=== PATIENT | male | born 1955 | race Caucasian/White ===

== ENCOUNTER 2017-02-08 16:53 | Inpatient (IN) | payer MEDICAID, OTHER ==
[~2017-02-08] VITALS: Ht 172.7 cm; Wt 108.9 kg
[~2017-02-08 16:53] MED LIST: BRIM15DR2 EACHEYE; CARV6.2548 PO; CLOP75TA16 PO; FAMO40TA70 PO; INDO25CA PO; LORA10TA7 PO; LOSA25TA3 PO; MONT10TA21 PO; MONT10TA24 PO; NEPT50 PO; SERT50TA PO; SIMV40TA5 PO; SUCR1ORA PO; ZET10 PO
[2017-02-08] MEDS ORDERED: ASPIRIN 81MG TABLET PO ONE (19:00)
[2017-02-08 19:05] LABS: BASOPHILS % 1.1 % (0.0-2.0); EOSINOPHILS % 2.5 % (0.0-5.0); HEMOGLOBIN. 14.7 g/dL (14.0-18.0); LYMPHOCYTES % 39.7 % (20.0-50.0); MEAN CORPUSCULAR HEMOGLOBIN 40.3 pg (28.0-32.0); MEAN CORPUSCULAR VOLUME 112.5 fL (80.0-94.0); MEAN PLATELET VOLUME 7.1 fl (7.4-10.4); MONOCYTES % 10.7 % (2.0-8.0); PLATELET 230 x1000/uL (130-400); RED BLOOD CELL COUNT 3.65 mill/uL (4.7-6.1); RED CELL DISTRIBUTION WIDTH 13.1 % (11.6-14.6)
[2017-02-08 19:10] LABS: CHLORIDE 100 mEq/L (98-107)
[2017-02-08 19:12] LABS: PARTIAL THROMBOPLASTIN TIME 24.5 sec (23.4-31.0); PROTHROMBIN TIME 10.4 sec (9.4-11.6)
[2017-02-08 19:13] LABS: CARBON DIOXIDE 28 mEq/L (21-32)
[2017-02-08 19:19] LABS: CREATINE KINASE 78 IU/L (39-308)
[2017-02-08 19:21] LABS: CREATINE KINASE MB FRACTION 1.5 ng/mL (0.5-3.6); TROPONIN I 0.02 ng/mL (0.00-0.04)
[2017-02-08 19:37] LABS: CLARITY URINE CLEAR (CLEAR); COLOR URINE DARK YELLOW (YELLOW); GLUCOSE URINE NEGATIVE (NEGATIVE); KETONES URINE TRACE (NEGATIVE); LEUKOCYTE ESTERASE URINE NEGATIVE (NEGATIVE); NITRITE URINE NEGATIVE (NEGATIVE); OCCULT BLOOD URINE NEGATIVE (NEGATIVE); PH URINE 5.5 (4.5-8.0); PROTEIN URINE NEGATIVE (NEGATIVE); SPECIFIC GRAVITY URINE 1.027 (1.005-1.030)
[2017-02-08 19:58] LABS: PLATELET ESTIMATE NORMAL
[2017-02-09] VITALS (13 sets, daily range): BP systolic 108–136; BP diastolic 58–83
[2017-02-09] MEDS ORDERED: HYDR500C18 PO (01:55)
[2017-02-09] MEDS ORDERED: ASPI-986 PO (02:03)
[2017-02-09] MEDS ORDERED: FURO20TA4 PO (02:04)
[2017-02-09] MEDS ORDERED: SPIR25TA PO (02:06)
[2017-02-09] MEDS ORDERED: RANO10003 PO (02:06)
[2017-02-09] MEDS ORDERED: ISOS30TA6 PO (02:10)
[2017-02-09] MEDS ORDERED: LOSARTAN POTASSIUM 25 MG TABLET PO SCH (09:00)
[2017-02-09] MEDS: SERTRALINE HCL 50MG TABLET PO SCH (09:07)
[2017-02-09] MEDS: RANOLAZINE 500 MG TAB.SR.12H PO SCH ×2 (09:07→17:07)
[2017-02-09] MEDS: LORATADINE 10MG TABLET PO SCH (09:07)
[2017-02-09] MEDS: ASPIRIN 325MG TABLET PO SCH (09:08)
[2017-02-09] MEDS: CLOPIDOGREL 75MG TABLET PO SCH (09:08)
[2017-02-09] MEDS: MONTELUKAST SODIUM 10MG TABLET PO SCH (09:08)
[2017-02-09] MEDS: CARVEDILOL 6.25 MG TABLET PO SCH ×2 (09:09→22:17)
[2017-02-09] MEDS: ISOSORBIDE MONONITRATE 30MG TABLET SR 24HR PO SCH (09:09)
[2017-02-09] MEDS: EZETIMIBE 10MG TABLET PO SCH (09:09)
[2017-02-09] MEDS: SPIRONOLACTONE 25MG TABLET PO SCH (09:09)
[2017-02-09] MEDS: FUROSEMIDE 40MG/4ML VIAL IVP SCH ×2 (09:10→16:37)
[2017-02-09] MEDS: HYDROXYUREA 500MG CAPSULE PO SCH (09:11)
[2017-02-09] MEDS: BUDESONIDE 0.5MG/2ML NEB HHN SCH ×2 (16:51→21:03)
[2017-02-09] MEDS ORDERED: HYDROCODONE/ACETAMINOPHEN 10/325MG TABLET PO PRN (22:15)
[2017-02-09] MEDS ORDERED: ONDANSETRON HCL 4MG/2ML VIAL IV PRN (22:15)
[2017-02-09] MEDS: FAMOTIDINE 20MG TABLET PO SCH (22:16)
[2017-02-09] MEDS: ATORVASTATIN CALCIUM 40MG TABLET PO SCH (22:16)
[2017-02-10] VITALS (12 sets, daily range): BP systolic 103–131; BP diastolic 44–78
[2017-02-10 07:33] LABS: CARBON DIOXIDE 26 mEq/L (21-32); CHLORIDE 103 mEq/L (98-107); HDL CHOLESTEROL 33 mg/dL (40-59); LDL CHOLESTEROL 73 mg/dL (5-100); TROPONIN I 0.02 ng/mL (0.00-0.04)
[2017-02-10 07:48] LABS: EOSINOPHILS % 3.4 % (0.0-5.0); HEMOGLOBIN. 13.2 g/dL (14.0-18.0); LYMPHOCYTES % 42.5 % (20.0-50.0); MEAN CORPUSCULAR HEMOGLOBIN 40.5 pg (28.0-32.0); MEAN CORPUSCULAR VOLUME 113.7 fL (80.0-94.0); MEAN PLATELET VOLUME 7.2 fl (7.4-10.4); MONOCYTES % 12.9 % (2.0-8.0); NEUTROPHILS % 40.2 % (40.0-76.0); PLATELET 198 x1000/uL (130-400); RED BLOOD CELL COUNT 3.26 mill/uL (4.7-6.1)
[2017-02-10] MEDS: BUDESONIDE 0.5MG/2ML NEB HHN SCH ×2 (09:19→21:19)
[2017-02-10] MEDS: SERTRALINE HCL 50MG TABLET PO SCH (09:47)
[2017-02-10] MEDS: CLOPIDOGREL 75MG TABLET PO SCH (09:47)
[2017-02-10] MEDS: RANOLAZINE 500 MG TAB.SR.12H PO SCH ×2 (09:47→17:21)
[2017-02-10] MEDS: SPIRONOLACTONE 25MG TABLET PO SCH (09:50)
[2017-02-10] MEDS: ISOSORBIDE MONONITRATE 30MG TABLET SR 24HR PO SCH (09:50)
[2017-02-10] MEDS: HYDROXYUREA 500MG CAPSULE PO SCH (09:51)
[2017-02-10] MEDS: EZETIMIBE 10MG TABLET PO SCH (09:51)
[2017-02-10] MEDS: CARVEDILOL 6.25 MG TABLET PO SCH ×2 (09:51→20:59)
[2017-02-10] MEDS: ASPIRIN 325MG TABLET PO SCH (09:51)
[2017-02-10] MEDS: LORATADINE 10MG TABLET PO SCH (09:51)
[2017-02-10] MEDS: MONTELUKAST SODIUM 10MG TABLET PO SCH (09:51)
[2017-02-10] MEDS ORDERED: LIDOCAINE HCL 1% 20ML VIAL (Pyxis) INJ ONE (13:42)
[2017-02-10] MEDS ORDERED: IODIXANOL 320MG/ML 100 ML BOTTLE IV ONE (13:42)
[2017-02-10] MEDS ORDERED: ASPIRIN/SOD BICARB/CITRIC ACID 324MG TAB EFF ONE (14:00)
[2017-02-10] MEDS ORDERED: FENTANYL CITRATE/PF 50MCG/ML 2ML VIAL ONE (14:11)
[2017-02-10] MEDS ORDERED: MIDAZOLAM HCL 2 MG/2 ML VIAL ONE (14:11)
[2017-02-10] MEDS ORDERED: HEPARIN SODIUM 1,000 UNIT/1ML VIAL IV ONE (14:13)
[2017-02-10] MEDS ORDERED: ONDANSETRON HCL 4MG/2ML VIAL IV PRN (15:00)
[2017-02-10] MEDS ORDERED: ACETAMINOPHEN 325MG TABLET PO PRN (15:00)
[2017-02-10] MEDS ORDERED: SODIUM CHLORIDE 0.45% 1,000 ML IV ONE (15:00)
[2017-02-10] MEDS ORDERED: MORPHINE SULFATE 2 MG/ML CPJ (NOT FOR IM USE) IV PRN (15:00)
[2017-02-10] MEDS ORDERED: ATROPINE SULFATE 1MG/10ML SYR IV PRN (15:00)
[2017-02-10] MEDS: FAMOTIDINE 20MG TABLET PO SCH (20:59)
[2017-02-10] MEDS: ATORVASTATIN CALCIUM 40MG TABLET PO SCH (21:00)
[2017-02-10] MEDS: FUROSEMIDE 20MG TABLET PO SCH (21:00)
[2017-02-11] VITALS (9 sets, daily range): BP systolic 104–142; BP diastolic 60–82
[2017-02-11 07:25] LABS: BASOPHILS % 0.6 % (0.0-2.0); EOSINOPHILS % 3.1 % (0.0-5.0); HEMATOCRIT. 39.4 % (42.0-52.0); HEMOGLOBIN. 14.1 g/dL (14.0-18.0); LYMPHOCYTES % 31.2 % (20.0-50.0); MEAN CORPUSCULAR HEMOGLOBIN 40.1 pg (28.0-32.0); MEAN CORPUSCULAR VOLUME 112.1 fL (80.0-94.0); MEAN PLATELET VOLUME 6.7 fl (7.4-10.4); MONOCYTES % 13.3 % (2.0-8.0); NEUTROPHILS % 51.8 % (40.0-76.0); PLATELET 190 x1000/uL (130-400); RED BLOOD CELL COUNT 3.51 mill/uL (4.7-6.1); RED CELL DISTRIBUTION WIDTH 12.8 % (11.6-14.6)
[2017-02-11 07:56] LABS: CHLORIDE 99 mEq/L (98-107)
[2017-02-11 08:14] LABS: CARBON DIOXIDE 25 mEq/L (21-32); TROPONIN I < 0.02 ng/mL (0.00-0.04)
[2017-02-11] MEDS: ASPIRIN 325MG TABLET PO SCH (08:57)
[2017-02-11] MEDS: RANOLAZINE 500 MG TAB.SR.12H PO SCH (08:57)
[2017-02-11] MEDS: ISOSORBIDE MONONITRATE 30MG TABLET SR 24HR PO SCH (08:57)
[2017-02-11] MEDS: CARVEDILOL 6.25 MG TABLET PO SCH (08:57)
[2017-02-11] MEDS: CLOPIDOGREL 75MG TABLET PO SCH (08:58)
[2017-02-11] MEDS: FUROSEMIDE 20MG TABLET PO SCH (08:58)
[2017-02-11] MEDS: EZETIMIBE 10MG TABLET PO SCH (08:58)
[2017-02-11] MEDS: MONTELUKAST SODIUM 10MG TABLET PO SCH (08:58)
[2017-02-11] MEDS: SPIRONOLACTONE 25MG TABLET PO SCH (08:58)
[2017-02-11] MEDS: SERTRALINE HCL 50MG TABLET PO SCH (08:59)
[2017-02-11] MEDS: HYDROXYUREA 500MG CAPSULE PO SCH (08:59)
[2017-02-11] MEDS: LORATADINE 10MG TABLET PO SCH (08:59)
[2017-02-11] MEDS: BUDESONIDE 0.5MG/2ML NEB HHN SCH (10:17)
[2017-02-11] MEDS ORDERED: CLOP75TA16 PO (11:01)
[2017-02-11] MEDS ORDERED: ASPI-986 PO (11:01)
== END 2017-02-11 12:58 | disposition home or self-care (01) | DRG 192 ==
LOC: EDBEDREQ 19:02 → ENRESERV 19:59 → ER 20:13 → 3WST 20:54
PROVIDERS: ADMIT Internal Medicine; ATTEND Internal Medicine
PROC: 5A09357 Assistance with Respiratory Ventilation, Less than 24 Consecutive Hours, Continuous Positive Airway Pressure (ICD-10-PCS; 2017-02-09)
PROC: 4A023N7 Measurement of Cardiac Sampling and Pressure, Left Heart, Percutaneous Approach (ICD-10-PCS; principal; 2017-02-10)
PROC: B2111ZZ Fluoroscopy of Multiple Coronary Arteries using Low Osmolar Contrast (ICD-10-PCS; 2017-02-10)
PROC: B2131ZZ Fluoroscopy of Multiple Coronary Artery Bypass Grafts using Low Osmolar Contrast (ICD-10-PCS; 2017-02-10)
PROC: B2151ZZ Fluoroscopy of Left Heart using Low Osmolar Contrast (ICD-10-PCS; 2017-02-10)
DX: R07.9 Chest pain, unspecified (principal); J96.00 Acute respiratory failure, unspecified whether with hypoxia or hypercapnia; I50.23 Acute on chronic systolic (congestive) heart failure; I42.0 Dilated cardiomyopathy; E11.22 Type 2 diabetes mellitus with diabetic chronic kidney disease; F32.9 Major depressive disorder, single episode, unspecified; F41.9 Anxiety disorder, unspecified; H40.9 Unspecified glaucoma; I25.5 Ischemic cardiomyopathy; G47.33 Obstructive sleep apnea (adult) (pediatric); E78.00 Pure hypercholesterolemia, unspecified; E78.5 Hyperlipidemia, unspecified; I25.110 Atherosclerotic heart disease of native coronary artery with unstable angina pectoris; I13.0 Hypertensive heart and chronic kidney disease with heart failure and stage 1 through stage 4 chronic kidney disease, or unspecified chronic kidney disease; J44.1 Chronic obstructive pulmonary disease with (acute) exacerbation; K21.9 Gastro-esophageal reflux disease without esophagitis; N18.9 Chronic kidney disease, unspecified; F51.04 Psychophysiologic insomnia; Z87.891 Personal history of nicotine dependence; Z79.899 Other long term (current) drug therapy; Z90.49 Acquired absence of other specified parts of digestive tract; I25.2 Old myocardial infarction; Z95.5 Presence of coronary angioplasty implant and graft; Z95.1 Presence of aortocoronary bypass graft; Z79.82 Long term (current) use of aspirin
CPT/HCPCS: 36415; 71010; 80053; 80061; 81003; 82550; 82553; 83690; 83735; 83880; 84443; 84484; 85025; 85610; 85730; 93005; 93306; 93459; 93970; 94640; 94660; 94664; 99285; C1760; C1769; C1887; C1893; J1644; J1940; J2250; J3010; J3490; J7626; Q9967

== ENCOUNTER 2017-06-13 08:00 | Inpatient (IN) | payer MEDICAID ==
[~2017-06-13] VITALS: Ht 170.2 cm; Wt 83.1 kg
[2017-06-13] MEDS: EZETIMIBE 10MG TABLET PO SCH (00:30)
[~2017-06-13 08:00] MED LIST changes: +ASPI-986 PO; +FURO20TA4 PO; +HYDR500C18 PO; +ISOS30TA6 PO; +RANO10003 PO; +SPIR25TA PO
[2017-06-13 09:14] LABS: INR 1.1
[2017-06-13 09:19] LABS: BASOPHILS % 1.2 % (0.0-2.0); EOSINOPHILS % 2.1 % (0.0-5.0); HEMATOCRIT. 38.9 % (42.0-52.0); HEMOGLOBIN. 13.6 g/dL (14.0-18.0); LYMPHOCYTES % 38.5 % (20.0-50.0); MEAN CORPUSCULAR HEMOGLOBIN 39.6 pg (28.0-32.0); MEAN CORPUSCULAR VOLUME 113.6 fL (80.0-94.0); MEAN PLATELET VOLUME 7.4 fl (7.4-10.4); MONOCYTES % 7.8 % (2.0-8.0); NEUTROPHILS % 50.4 % (40.0-76.0); PLATELET 205 x1000/uL (130-400); RED BLOOD CELL COUNT 3.42 mill/uL (4.7-6.1); RED CELL DISTRIBUTION WIDTH 12.7 % (11.6-14.6)
[2017-06-13 09:25] LABS: CARBON DIOXIDE 25 mEq/L (21-32); CHLORIDE 101 mEq/L (98-107); TROPONIN I < 0.02 ng/mL (0.00-0.04)
[2017-06-13 10:13] LABS: PLATELET ESTIMATE NORMAL
[2017-06-13] MEDS ORDERED: LORAZEPAM 0.5MG TABLET PO PRN (11:30)
[2017-06-13] MEDS ORDERED: CLONIDINE 0.1MG TABLET PO PRN (11:30)
[2017-06-13] MEDS ORDERED: MAGNESIUM/ALUMINUM HYDROXIDE/SIMETHICONE 30ML UDC PO PRN (11:30)
[2017-06-13] MEDS ORDERED: HYDROCODONE/ACETAMINOPHEN 5/325MG TABLET PO PRN (11:30)
[2017-06-13] MEDS ORDERED: IPRATROPIUM/ALBUTEROL 0.5-3(2.5)MG/3ML NEB INH PRN (11:30)
[2017-06-13] MEDS ORDERED: ONDANSETRON HCL 4MG/2ML VIAL IV PRN (11:30)
[2017-06-13] MEDS ORDERED: ACETAMINOPHEN 325MG TABLET PO PRN (11:30)
[2017-06-13 14:54] LABS: CREATINE KINASE MB FRACTION 1.4 ng/mL (0.5-3.6); TROPONIN I 0.02 ng/mL (0.00-0.04)
[2017-06-13] MEDS ORDERED: NITROGLYCERIN OINT 1GM/INCH UDPKT TD NR (18:30)
[2017-06-13] MEDS: CLOPIDOGREL 75MG TABLET PO SCH (21:19)
[2017-06-13] MEDS: ASPIRIN 325MG EC TABLET PO SCH (21:19)
[2017-06-13] MEDS ORDERED: NON FORMULARY PATIENT HOME MED EA XX SCH (23:45)
[2017-06-13] MEDS ORDERED: CARVEDILOL 6.25 MG TABLET PO SCH (23:45)
[2017-06-13] MEDS ORDERED: LOSARTAN POTASSIUM 25 MG TABLET PO SCH (23:45)
[2017-06-13] MEDS ORDERED: ISOSORBIDE MONONITRATE 20MG TABLET PO SCH (23:45)
[2017-06-13] MEDS: FUROSEMIDE 20MG TABLET PO SCH (23:55)
[2017-06-14] VITALS (20 sets, daily range): BP systolic 93–164; BP diastolic 57–87
[2017-06-14] MEDS: CARVEDILOL 6.25 MG TABLET PO SCH ×3 (00:24→20:52)
[2017-06-14] MEDS: LOSARTAN POTASSIUM 25 MG TABLET PO SCH ×2 (00:24→09:00)
[2017-06-14 00:25] LABS: CREATINE KINASE 99 IU/L (39-308)
[2017-06-14] MEDS: NITROGLYCERIN OINT 1GM/INCH UDPKT TD SCH ×3 (00:25→17:22)
[2017-06-14 06:54] LABS: CARBON DIOXIDE 27 mEq/L (21-32); CHLORIDE 101 mEq/L (98-107); LDL CHOLESTEROL 75 mg/dL (5-100); TROPONIN I 0.03 ng/mL (0.00-0.04)
[2017-06-14 07:00] LABS: HDL CHOLESTEROL 36 mg/dL (40-59)
[2017-06-14 07:01] LABS: BASOPHILS % 1.3 % (0.0-2.0); EOSINOPHILS % 2.3 % (0.0-5.0); HEMATOCRIT. 41.3 % (42.0-52.0); HEMOGLOBIN. 14.4 g/dL (14.0-18.0); LYMPHOCYTES % 51.2 % (20.0-50.0); MEAN CORPUSCULAR HEMOGLOBIN 39.7 pg (28.0-32.0); MEAN CORPUSCULAR VOLUME 114.2 fL (80.0-94.0); MEAN PLATELET VOLUME 7.2 fl (7.4-10.4); MONOCYTES % 11.1 % (2.0-8.0); NEUTROPHILS % 34.1 % (40.0-76.0); PLATELET 180 x1000/uL (130-400); RED BLOOD CELL COUNT 3.61 mill/uL (4.7-6.1); RED CELL DISTRIBUTION WIDTH 12.9 % (11.6-14.6)
[2017-06-14] MEDS ORDERED: EZETIMIBE 10MG TABLET PO SCH (09:00)
[2017-06-14] MEDS: SPIRONOLACTONE 25MG TABLET PO SCH (09:00)
[2017-06-14] MEDS: FUROSEMIDE 20MG TABLET PO SCH (09:00)
[2017-06-14] MEDS ORDERED: CLOPIDOGREL 75MG TABLET PO SCH (09:00)
[2017-06-14] MEDS: ENOXAPARIN 40MG/0.4ML SYR SUBCUT SCH (09:00)
[2017-06-14] MEDS ORDERED: ASPIRIN 325MG TABLET PO SCH (09:00)
[2017-06-14] MEDS: ASPIRIN 325MG EC TABLET PO SCH (09:00)
[2017-06-14] MEDS: ISOSORBIDE MONONITRATE 30MG TABLET SR 24HR PO SCH ×2 (09:00→10:10)
[2017-06-14] MEDS ORDERED: FUROSEMIDE 20MG TABLET PO SCH (09:00)
[2017-06-14] MEDS: CLOPIDOGREL 75MG TABLET PO SCH (09:00)
[2017-06-14] MEDS ORDERED: NITROGLYCERIN 50MCG/ML 10ML VIAL (CATH LAB) IV ONE (09:50)
[2017-06-14] MEDS ORDERED: NICARDIPINE 100MCG/ML 10ML VIAL (CATH LAB) IV ONE (09:50)
[2017-06-14] MEDS ORDERED: ADENOSINE 12MCG/ML 10ML VIAL (CATH LAB) IV ONE (09:50)
[2017-06-14] MEDS ORDERED: HEPARIN SODIUM 1,000 UNIT/1ML VIAL IV ONE (09:50)
[2017-06-14] MEDS: LORATADINE 10MG TABLET PO SCH (10:09)
[2017-06-14] MEDS: RANOLAZINE 500 MG TAB.SR.12H PO SCH (10:10)
[2017-06-14] MEDS: EZETIMIBE 10MG TABLET PO SCH (10:11)
[2017-06-14] MEDS: HYDROXYUREA 500MG CAPSULE PO SCH (10:12)
[2017-06-14] MEDS: LEVOTHYROXINE SODIUM 50MCG TABLET PO SCH (11:30)
[2017-06-14] MEDS ORDERED: LIDOCAINE HCL 1% 20ML VIAL (Pyxis) INJ ONE (12:49)
[2017-06-14] MEDS ORDERED: IODIXANOL 320MG/ML 100 ML BOTTLE IV ONE (12:49)
[2017-06-14] MEDS ORDERED: MIDAZOLAM HCL 2 MG/2 ML VIAL ONE (13:38)
[2017-06-14] MEDS ORDERED: FENTANYL CITRATE/PF 50MCG/ML 2ML VIAL ONE (13:38)
[2017-06-14] MEDS ORDERED: ASPIRIN/SOD BICARB/CITRIC ACID 324MG TAB EFF ONE (13:46)
[2017-06-14] MEDS ORDERED: ATROPINE SULFATE 0.1MG/ML 10ML DISP.SYRIN ONE (14:08)
[2017-06-14] MEDS ORDERED: IOVERSOL 240MG/ML 100ML BOTTLE IV ONE (14:08)
[2017-06-14] MEDS ORDERED: CLOPIDOGREL 75MG TABLET ONE (14:40)
[2017-06-14] MEDS ORDERED: ONDANSETRON HCL 4MG/2ML VIAL IV PRN (14:45)
[2017-06-14] MEDS ORDERED: MORPHINE SULFATE 4 MG/ML CPJ (NOT FOR IM USE) IV PRN (14:45)
[2017-06-14] MEDS ORDERED: SODIUM CHLORIDE 0.45% 1,000 ML IV ONE (14:45)
[2017-06-14] MEDS ORDERED: CLOPIDOGREL 75MG TABLET PO ONE (14:45)
[2017-06-14] MEDS ORDERED: ACETAMINOPHEN 325MG TABLET PO PRN (14:45)
[2017-06-14] MEDS ORDERED: ATROPINE SULFATE 1MG/10ML SYR IV PRN (14:45)
[2017-06-14] MEDS ORDERED: POTASSIUM CHLORIDE 20MEQ TABLET SR PO SCH (18:30)
[2017-06-14] MEDS ORDERED: ATROPINE SULFATE 1MG/10ML SYR ONE (20:35)
[2017-06-14] MEDS: FAMOTIDINE 20MG TABLET PO SCH (20:53)
[2017-06-14] MEDS: CITALOPRAM HYDROBROMIDE 10MG TABLET PO SCH (20:54)
[2017-06-15] VITALS (12 sets, daily range): BP systolic 93–133; BP diastolic 50–87
[2017-06-15] MEDS: NITROGLYCERIN OINT 1GM/INCH UDPKT TD SCH ×4 (06:00→17:30)
[2017-06-15] MEDS: LEVOTHYROXINE SODIUM 50MCG TABLET PO SCH (06:01)
[2017-06-15 06:03] LABS: BASOPHILS % 0.9 % (0.0-2.0); EOSINOPHILS % 1.6 % (0.0-5.0); HEMATOCRIT. 40.9 % (42.0-52.0); HEMOGLOBIN. 14.3 g/dL (14.0-18.0); LYMPHOCYTES % 44.3 % (20.0-50.0); MEAN CORPUSCULAR HEMOGLOBIN 40.1 pg (28.0-32.0); MEAN CORPUSCULAR VOLUME 114.5 fL (80.0-94.0); MEAN PLATELET VOLUME 7.3 fl (7.4-10.4); MONOCYTES % 12.3 % (2.0-8.0); NEUTROPHILS % 40.9 % (40.0-76.0); PLATELET 182 x1000/uL (130-400); RED BLOOD CELL COUNT 3.58 mill/uL (4.7-6.1); RED CELL DISTRIBUTION WIDTH 12.7 % (11.6-14.6)
[2017-06-15] MEDS: HYDROXYUREA 500MG CAPSULE PO SCH (08:12)
[2017-06-15] MEDS: CLOPIDOGREL 75MG TABLET PO SCH (08:13)
[2017-06-15] MEDS: ASPIRIN 325MG TABLET PO SCH (08:13)
[2017-06-15] MEDS: SPIRONOLACTONE 25MG TABLET PO SCH (08:13)
[2017-06-15] MEDS: EZETIMIBE 10MG TABLET PO SCH (08:14)
[2017-06-15] MEDS: RANOLAZINE 500 MG TAB.SR.12H PO SCH (08:14)
[2017-06-15] MEDS: ISOSORBIDE MONONITRATE 30MG TABLET SR 24HR PO SCH (08:15)
[2017-06-15] MEDS: ENOXAPARIN 40MG/0.4ML SYR SUBCUT SCH (08:15)
[2017-06-15] MEDS: LOSARTAN POTASSIUM 25 MG TABLET PO SCH (08:15)
[2017-06-15] MEDS: CARVEDILOL 6.25 MG TABLET PO SCH ×2 (08:16→21:25)
[2017-06-15] MEDS: FUROSEMIDE 20MG TABLET PO SCH (08:16)
[2017-06-15] MEDS: LORATADINE 10MG TABLET PO SCH (08:22)
[2017-06-15] MEDS ORDERED: CLOPIDOGREL 75MG TABLET PO SCH (09:00)
[2017-06-15] MEDS ORDERED: SODIUM CHLORIDE 0.45% 500 ML IV SCH (11:00)
[2017-06-15 11:54] LABS: T4 FREE 0.51 ng/dL (0.76-1.46)
[2017-06-15] MEDS ORDERED: MORPHINE SULFATE 4 MG/ML CPJ (NOT FOR IM USE) IV NR (18:00)
[2017-06-15] MEDS ORDERED: NITROGLYCERIN 0.4MG TABLET SL SL NR (18:00)
[2017-06-15] MEDS: CITALOPRAM HYDROBROMIDE 10MG TABLET PO SCH (21:00)
[2017-06-15] MEDS: FAMOTIDINE 20MG TABLET PO SCH (21:24)
[2017-06-16] VITALS (8 sets, daily range): BP systolic 99–126; BP diastolic 55–75
[2017-06-16] MEDS: LEVOTHYROXINE SODIUM 50MCG TABLET PO SCH (06:34)
[2017-06-16] MEDS: NITROGLYCERIN OINT 1GM/INCH UDPKT TD SCH ×3 (06:35→12:00)
[2017-06-16 06:45] LABS: HEMATOCRIT. 39.7 % (42.0-52.0); HEMOGLOBIN. 14.1 g/dL (14.0-18.0); MEAN CORPUSCULAR VOLUME 115.9 fL (80.0-94.0); PLATELET 168 x1000/uL (130-400); RED BLOOD CELL COUNT 3.43 mill/uL (4.7-6.1)
[2017-06-16 07:35] LABS: CHLORIDE 101 mEq/L (98-107)
[2017-06-16 08:18] LABS: CARBON DIOXIDE 20 mEq/L (21-32); PHOSPHORUS 3.9 mg/dL (2.5-4.9)
[2017-06-16] MEDS: RANOLAZINE 500 MG TAB.SR.12H PO SCH (08:20)
[2017-06-16] MEDS: LORATADINE 10MG TABLET PO SCH (08:20)
[2017-06-16] MEDS: ISOSORBIDE MONONITRATE 30MG TABLET SR 24HR PO SCH (08:20)
[2017-06-16] MEDS: EZETIMIBE 10MG TABLET PO SCH (08:20)
[2017-06-16] MEDS: SPIRONOLACTONE 25MG TABLET PO SCH (08:21)
[2017-06-16] MEDS: CLOPIDOGREL 75MG TABLET PO SCH (08:21)
[2017-06-16] MEDS: LOSARTAN POTASSIUM 25 MG TABLET PO SCH ×2 (08:21→09:00)
[2017-06-16] MEDS: CARVEDILOL 6.25 MG TABLET PO SCH (08:22)
[2017-06-16] MEDS: FUROSEMIDE 20MG TABLET PO SCH (08:22)
[2017-06-16] MEDS: HYDROXYUREA 500MG CAPSULE PO SCH (08:22)
[2017-06-16] MEDS: ENOXAPARIN 40MG/0.4ML SYR SUBCUT SCH (08:22)
[2017-06-16] MEDS: ASPIRIN 325MG TABLET PO SCH (09:34)
[2017-06-16 12:52] LABS: PLATELET ESTIMATE NORMAL
[2017-06-17] MEDS ORDERED: LEVOTHYROXINE SODIUM 75MCG TABLET PO SCH (06:50)
== END 2017-06-16 13:06 | disposition home or self-care (01) | DRG 175 ==
LOC: ER 08:16 → CANRESERV 15:15 → ENRESERV 15:15 → 6WST 23:20 → 3WST 06-14 16:35
PROVIDERS: ADMIT Internal Medicine; ATTEND Internal Medicine
PROC: 027035Z Dilation of Coronary Artery, One Artery with Two Drug-eluting Intraluminal Devices, Percutaneous Approach (ICD-10-PCS; principal; 2017-06-14)
PROC: B2111ZZ Fluoroscopy of Multiple Coronary Arteries using Low Osmolar Contrast (ICD-10-PCS; 2017-06-14)
PROC: B2131ZZ Fluoroscopy of Multiple Coronary Artery Bypass Grafts using Low Osmolar Contrast (ICD-10-PCS; 2017-06-14)
DX: I25.110 Atherosclerotic heart disease of native coronary artery with unstable angina pectoris (principal); I42.0 Dilated cardiomyopathy; N17.9 Acute kidney failure, unspecified; I13.10 Hypertensive heart and chronic kidney disease without heart failure, with stage 1 through stage 4 chronic kidney disease, or unspecified chronic kidney disease; N18.3 Chronic kidney disease, stage 3 (moderate); E87.1 Hypo-osmolality and hyponatremia; I25.82 Chronic total occlusion of coronary artery; K21.9 Gastro-esophageal reflux disease without esophagitis; I25.5 Ischemic cardiomyopathy; E03.9 Hypothyroidism, unspecified; F32.9 Major depressive disorder, single episode, unspecified; F41.9 Anxiety disorder, unspecified; E78.00 Pure hypercholesterolemia, unspecified; E78.5 Hyperlipidemia, unspecified; G47.33 Obstructive sleep apnea (adult) (pediatric); I25.2 Old myocardial infarction; Z82.49 Family history of ischemic heart disease and other diseases of the circulatory system; Z87.891 Personal history of nicotine dependence; Z95.5 Presence of coronary angioplasty implant and graft; Z95.1 Presence of aortocoronary bypass graft; Z79.899 Other long term (current) drug therapy; N14.1 Nephropathy induced by other drugs, medicaments and biological substances; T50.8X5A Adverse effect of diagnostic agents, initial encounter
CPT/HCPCS: 36415; 71045; 76770; 80048; 80053; 80061; 82550; 82553; 83735; 83880; 84100; 84439; 84443; 84481; 84484; 85025; 85347; 85610; 85730; 92937; 93005; 93459; 93970; 94660; 99285; C1725; C1726; C1769; C1887; C1893; J0153; J0461; J1644; J1650; J2250; J2270; J3010; J3490; Q9967

== ENCOUNTER 2017-12-01 07:58 | Inpatient (IN) | payer MEDICAID ==
[~2017-12-01] VITALS: Ht 170.2 cm; Wt 80.0 kg
[~2017-12-01 07:58] MED LIST changes: -MONT10TA24 PO; -NEPT50 PO; +SACU1TAB PO; -SERT50TA PO; -SUCR1ORA PO
[2017-12-01 08:45] LABS: BASOPHILS % 1.2 % (0.0-2.0); EOSINOPHILS % 1.5 % (0.0-5.0); HEMATOCRIT. 39.6 % (42.0-52.0); HEMOGLOBIN. 13.6 g/dL (14.0-18.0); LYMPHOCYTES % 27.4 % (20.0-50.0); MEAN PLATELET VOLUME 7.3 fl (7.4-10.4); MONOCYTES % 8.5 % (2.0-8.0); NEUTROPHILS % 61.4 % (40.0-76.0); PLATELET 222 x1000/uL (130-400); RED BLOOD CELL COUNT 3.88 mill/uL (4.7-6.1); RED CELL DISTRIBUTION WIDTH 12.1 % (11.6-14.6)
[2017-12-01 08:49] LABS: CHLORIDE 103 mEq/L (98-107)
[2017-12-01 08:50] LABS: INR 1.1; PROTHROMBIN TIME 11.3 sec (9.4-11.6)
[2017-12-01] MEDS ORDERED: KETOROLAC 15MG/ML VIAL IV ONE (09:45)
[2017-12-01] MEDS ORDERED: METOCLOPRAMIDE HCL 10MG/2ML VIAL IV ONE (09:45)
[2017-12-01] MEDS ORDERED: DIPHENHYDRAMINE 50MG/ML VIAL IV ONE (09:45)
[2017-12-01] MEDS ORDERED: ASPIRIN 81MG TABLET PO ONE (10:00)
[2017-12-01 13:00] VITALS: BP 97/66
[2017-12-01] MEDS ORDERED: ACETAMINOPHEN 325MG TABLET PO PRN (13:00)
[2017-12-01] MEDS: LOSARTAN POTASSIUM 25 MG TABLET PO SCH ×2 (13:30→23:21)
[2017-12-01 16:00] VITALS: BP 105/65
[2017-12-01] MEDS: BRIMONIDINE 0.2% OPHTH DROPS 5ML BOTHEYE SCH (16:31)
[2017-12-01] MEDS: ENOXAPARIN 40MG/0.4ML SYR SUBCUT SCH (16:32)
[2017-12-01] MEDS ORDERED: MEDICATION NOT ON FORMULARY EA (Brimonidine Tartrate (Alphagan P) 1 DROP) EACHEYE SCH (17:00)
[2017-12-01 20:00] VITALS: BP 104/60
[2017-12-01] MEDS: CARVEDILOL 6.25 MG TABLET PO SCH (21:00)
[2017-12-01 21:06] LABS: *AMPHETAMINES SCREEN URINE PRESUMTIVE POSITIVE (NEGATIVE); *BARBITURATES SCREEN URINE NEGATIVE (NEGATIVE)
[2017-12-01 21:07] LABS: *BENZODIAZEPINES SCREEN URINE NEGATIVE (NEGATIVE); *COCAINE SCREEN URINE NEGATIVE (NEGATIVE); CANNABINOID URINE SCREEN NEGATIVE (NEGATIVE); METHADONE URINE SCREEN NEGATIVE (NEGATIVE); OPIATES URINE SCREEN NEGATIVE (NEGATIVE); PHENCYCLIDINE URINE SCREEN NEGATIVE (NEGATIVE)
[2017-12-01] MEDS: ATORVASTATIN CALCIUM 40MG TABLET PO SCH (23:21)
[2017-12-02 00:32] VITALS: BP 117/74
[2017-12-02] MEDS: LEVOTHYROXINE SODIUM 50MCG TABLET PO SCH (06:27)
[2017-12-02 06:52] LABS: EOSINOPHILS % 2.7 % (0.0-5.0); HEMATOCRIT. 42.1 % (42.0-52.0); HEMOGLOBIN. 14.4 g/dL (14.0-18.0); LYMPHOCYTES % 37.5 % (20.0-50.0); MEAN CORPUSCULAR VOLUME 102.6 fL (80.0-94.0); MEAN PLATELET VOLUME 7.5 fl (7.4-10.4); MONOCYTES % 11.9 % (2.0-8.0); NEUTROPHILS % 46.9 % (40.0-76.0); PLATELET 203 x1000/uL (130-400); RED BLOOD CELL COUNT 4.11 mill/uL (4.7-6.1); RED CELL DISTRIBUTION WIDTH 12.1 % (11.6-14.6)
[2017-12-02 08:00] VITALS: BP 116/76
[2017-12-02 08:02] LABS: CHLORIDE 102 mEq/L (98-107)
[2017-12-02 08:19] LABS: CREATINE KINASE 47 IU/L (39-308)
[2017-12-02 08:22] LABS: CREATINE KINASE MB FRACTION 1.4 ng/mL (0.5-3.6)
[2017-12-02] MEDS: LOSARTAN POTASSIUM 25 MG TABLET PO SCH ×2 (08:47→21:00)
[2017-12-02] MEDS: BRIMONIDINE 0.2% OPHTH DROPS 5ML BOTHEYE SCH ×2 (09:00→16:28)
[2017-12-02] MEDS ORDERED: MEDICATION NOT ON FORMULARY EA (Ranolazine (Ranexa) 1,000 MG) PO SCH (09:00)
[2017-12-02] MEDS: CARVEDILOL 6.25 MG TABLET PO SCH ×2 (09:12→21:56)
[2017-12-02] MEDS: ASPIRIN 325MG EC TABLET PO SCH (09:12)
[2017-12-02] MEDS: RANOLAZINE 500 MG TAB.SR.12H PO SCH (09:13)
[2017-12-02] MEDS: CLOPIDOGREL 75MG TABLET PO SCH (09:13)
[2017-12-02 12:00] VITALS: BP 107/70
[2017-12-02] MEDS: ENOXAPARIN 40MG/0.4ML SYR SUBCUT SCH (13:15)
[2017-12-02 16:00] VITALS: BP 101/68
[2017-12-02] MEDS ORDERED: DOCUSATE SODIUM 250MG CAPSULE PO PRN (16:45)
[2017-12-02 20:00] VITALS: BP 102/67
[2017-12-02] MEDS: ATORVASTATIN CALCIUM 40MG TABLET PO SCH (21:56)
[2017-12-03] VITALS (7 sets, daily range): BP systolic 91–128; BP diastolic 46–78
[2017-12-03 02:27] LABS: *AMPHETAMINES SCREEN URINE NEGATIVE (NEGATIVE); *BARBITURATES SCREEN URINE NEGATIVE (NEGATIVE); *BENZODIAZEPINES SCREEN URINE NEGATIVE (NEGATIVE); *COCAINE SCREEN URINE NEGATIVE (NEGATIVE)
[2017-12-03 02:28] LABS: CANNABINOID URINE SCREEN NEGATIVE (NEGATIVE); METHADONE URINE SCREEN NEGATIVE (NEGATIVE); OPIATES URINE SCREEN NEGATIVE (NEGATIVE); PHENCYCLIDINE URINE SCREEN NEGATIVE (NEGATIVE)
[2017-12-03] MEDS: LEVOTHYROXINE SODIUM 50MCG TABLET PO SCH (06:25)
[2017-12-03] MEDS: CLOPIDOGREL 75MG TABLET PO SCH (08:18)
[2017-12-03] MEDS: RANOLAZINE 500 MG TAB.SR.12H PO SCH (08:18)
[2017-12-03] MEDS: CARVEDILOL 6.25 MG TABLET PO SCH ×2 (08:18→21:44)
[2017-12-03] MEDS: ASPIRIN 325MG EC TABLET PO SCH (08:18)
[2017-12-03] MEDS: LOSARTAN POTASSIUM 25 MG TABLET PO SCH ×2 (08:31→21:00)
[2017-12-03] MEDS: BRIMONIDINE 0.2% OPHTH DROPS 5ML BOTHEYE SCH ×3 (08:31→21:52)
[2017-12-03 11:17] LABS: BASOPHILS % 0.9 % (0.0-2.0); EOSINOPHILS % 2.4 % (0.0-5.0); HEMATOCRIT. 45.7 % (42.0-52.0); HEMOGLOBIN. 15.7 g/dL (14.0-18.0); LYMPHOCYTES % 33.6 % (20.0-50.0); MEAN CORPUSCULAR HEMOGLOBIN 35.3 pg (28.0-32.0); MEAN CORPUSCULAR VOLUME 102.7 fL (80.0-94.0); MEAN PLATELET VOLUME 7.5 fl (7.4-10.4); MONOCYTES % 11.5 % (2.0-8.0); NEUTROPHILS % 51.6 % (40.0-76.0); PLATELET 216 x1000/uL (130-400); RED BLOOD CELL COUNT 4.45 mill/uL (4.7-6.1); RED CELL DISTRIBUTION WIDTH 12.3 % (11.6-14.6)
[2017-12-03 11:35] LABS: T4 FREE 0.98 ng/dL (0.76-1.46)
[2017-12-03] MEDS: HYDROCODONE/ACETAMINOPHEN 5/325MG TABLET PO PRN (18:30)
[2017-12-03] MEDS: ATORVASTATIN CALCIUM 40MG TABLET PO SCH (21:44)
[2017-12-04] VITALS (10 sets, daily range): BP systolic 98–125; BP diastolic 64–93
[2017-12-04] MEDS: LEVOTHYROXINE SODIUM 50MCG TABLET PO SCH (06:35)
[2017-12-04] MEDS: CARVEDILOL 6.25 MG TABLET PO SCH ×2 (09:00→22:18)
[2017-12-04] MEDS: RANOLAZINE 500 MG TAB.SR.12H PO SCH (09:00)
[2017-12-04] MEDS: ASPIRIN 325MG EC TABLET PO SCH ×2 (09:00→09:23)
[2017-12-04] MEDS: LOSARTAN POTASSIUM 25 MG TABLET PO SCH ×2 (09:00→21:00)
[2017-12-04] MEDS: CLOPIDOGREL 75MG TABLET PO SCH ×2 (09:00→09:23)
[2017-12-04] MEDS: HYDROCODONE/ACETAMINOPHEN 5/325MG TABLET PO PRN ×2 (10:09→22:20)
[2017-12-04] MEDS ORDERED: IODIXANOL 320MG/ML 100 ML BOTTLE IV ONE ×2 (12:57→14:14)
[2017-12-04] MEDS ORDERED: LIDOCAINE HCL 1% 20ML VIAL (Pyxis) INJ ONE (12:58)
[2017-12-04] MEDS ORDERED: MIDAZOLAM HCL 2 MG/2 ML VIAL ONE (13:07)
[2017-12-04] MEDS ORDERED: FENTANYL CITRATE/PF 50MCG/ML 2ML VIAL ONE (13:07)
[2017-12-04] MEDS: BRIMONIDINE 0.2% OPHTH DROPS 5ML BOTHEYE SCH ×2 (13:48→22:00)
[2017-12-04] MEDS ORDERED: DIPHENHYDRAMINE 50MG/ML VIAL ONE (13:53)
[2017-12-04] MEDS ORDERED: IOHEXOL-300 100 ML BOTTLE ONE (14:10)
[2017-12-04] MEDS ORDERED: SODIUM CHLORIDE 0.45% 700 ML IV ONE (14:30)
[2017-12-04] MEDS ORDERED: ATROPINE SULFATE 1MG/10ML SYR IV PRN (14:30)
[2017-12-04] MEDS ORDERED: CLOPIDOGREL 75MG TABLET PO ONE (14:30)
[2017-12-04] MEDS ORDERED: ACETAMINOPHEN 325MG TABLET PO PRN (14:30)
[2017-12-04] MEDS ORDERED: MORPHINE SULFATE 4 MG/ML CPJ (NOT FOR IM USE) IV PRN (14:30)
[2017-12-04] MEDS ORDERED: ONDANSETRON HCL 4MG/2ML VIAL IV PRN (14:30)
[2017-12-04] MEDS ORDERED: CLOPIDOGREL 75MG TABLET ONE (14:39)
[2017-12-04] MEDS ORDERED: HEPARIN SODIUM 1,000 UNIT/1ML VIAL IV ONE (14:55)
[2017-12-04] MEDS: ATORVASTATIN CALCIUM 40MG TABLET PO SCH (22:18)
[2017-12-05] VITALS (9 sets, daily range): BP systolic 97–147; BP diastolic 55–83
[2017-12-05] MEDS: BRIMONIDINE 0.2% OPHTH DROPS 5ML BOTHEYE SCH (04:58)
[2017-12-05] MEDS: LEVOTHYROXINE SODIUM 50MCG TABLET PO SCH (06:01)
[2017-12-05 07:16] LABS: BASOPHILS % 1.2 % (0.0-2.0); EOSINOPHILS % 3.4 % (0.0-5.0); HEMATOCRIT. 45.9 % (42.0-52.0); HEMOGLOBIN. 15.8 g/dL (14.0-18.0); LYMPHOCYTES % 38.5 % (20.0-50.0); MEAN CORPUSCULAR HEMOGLOBIN 35.2 pg (28.0-32.0); MEAN CORPUSCULAR VOLUME 102.4 fL (80.0-94.0); MEAN PLATELET VOLUME 7.8 fl (7.4-10.4); MONOCYTES % 12.4 % (2.0-8.0); NEUTROPHILS % 44.5 % (40.0-76.0); PLATELET 235 x1000/uL (130-400); RED BLOOD CELL COUNT 4.48 mill/uL (4.7-6.1); RED CELL DISTRIBUTION WIDTH 12.3 % (11.6-14.6)
[2017-12-05] MEDS: LOSARTAN POTASSIUM 25 MG TABLET PO SCH (08:35)
[2017-12-05] MEDS: RANOLAZINE 500 MG TAB.SR.12H PO SCH (08:35)
[2017-12-05] MEDS ORDERED: CLOPIDOGREL 75MG TABLET PO SCH (09:00)
[2017-12-05] MEDS ORDERED: ASPIRIN 325MG TABLET PO SCH (09:00)
[2017-12-05] MEDS: ASPIRIN 325MG EC TABLET PO SCH (09:49)
[2017-12-05] MEDS: CARVEDILOL 6.25 MG TABLET PO SCH (09:49)
== END 2017-12-05 14:18 | disposition home or self-care (01) | DRG 175 ==
LOC: ER 07:58 → 5WST 10:13 → ENRESERV 10:39 → 3WST 12-04 14:55
PROVIDERS: ADMIT Internal Medicine; ATTEND Internal Medicine
PROC: 4A023N7 Measurement of Cardiac Sampling and Pressure, Left Heart, Percutaneous Approach (ICD-10-PCS; principal; 2017-12-04)
PROC: 027034Z Dilation of Coronary Artery, One Artery with Drug-eluting Intraluminal Device, Percutaneous Approach (ICD-10-PCS; 2017-12-04)
PROC: B2111ZZ Fluoroscopy of Multiple Coronary Arteries using Low Osmolar Contrast (ICD-10-PCS; 2017-12-04)
PROC: B21F1ZZ Fluoroscopy of Other Bypass Graft using Low Osmolar Contrast (ICD-10-PCS; 2017-12-04)
DX: T82.855A Stenosis of coronary artery stent, initial encounter (principal); N17.9 Acute kidney failure, unspecified; I13.0 Hypertensive heart and chronic kidney disease with heart failure and stage 1 through stage 4 chronic kidney disease, or unspecified chronic kidney disease; I50.22 Chronic systolic (congestive) heart failure; I25.82 Chronic total occlusion of coronary artery; I25.118 Atherosclerotic heart disease of native coronary artery with other forms of angina pectoris; E78.5 Hyperlipidemia, unspecified; E03.9 Hypothyroidism, unspecified; D64.9 Anemia, unspecified; R73.9 Hyperglycemia, unspecified; H53.149 Visual discomfort, unspecified; R61 Generalized hyperhidrosis; E78.00 Pure hypercholesterolemia, unspecified; F32.9 Major depressive disorder, single episode, unspecified; F41.9 Anxiety disorder, unspecified; G89.29 Other chronic pain; I25.10 Atherosclerotic heart disease of native coronary artery without angina pectoris; K21.9 Gastro-esophageal reflux disease without esophagitis; N18.9 Chronic kidney disease, unspecified; I25.5 Ischemic cardiomyopathy; Z95.5 Presence of coronary angioplasty implant and graft; Z79.02 Long term (current) use of antithrombotics/antiplatelets
CPT/HCPCS: 36415; 70450; 70490; 70544; 70553; 71045; 80048; 80053; 80305; 82550; 82553; 83036; 83735; 83880; 84439; 84443; 84481; 84484; 85025; 85347; 85379; 85610; 92928; 93005; 93306; 93455; 96374; 96375; 99285; C1760; C1769; C1874; C1887; C1893; J1200; J1644; J1650; J1885; J2250; J2765; J3010; J3490; Q9967

== ENCOUNTER 2018-09-25 07:14 | Inpatient (IN) | payer MEDICAID ==
[~2018-09-25] VITALS: Ht 170.2 cm; Wt 76.7 kg
[2018-09-25] VITALS (19 sets, daily range): BP systolic 88–115; BP diastolic 39–74
[~2018-09-25 07:14] MED LIST changes: -INDO25CA PO; +INDO25CA18 PO; -SPIR25TA PO
[2018-09-25] MEDS ORDERED: LEVO50TA MT (10:19)
[2018-09-25] MEDS ORDERED: INSU100I24 SQ (10:19)
[2018-09-25] MEDS ORDERED: FURO20TA4 PO (10:19)
[2018-09-25] MEDS ORDERED: SPIR25TA6 MT (10:19)
[2018-09-25] MEDS ORDERED: ICOS1CAP MT (10:19)
[2018-09-25] MEDS ORDERED: SERT50TA12 MT (10:19)
[2018-09-25 10:39] LABS: HEMATOCRIT 44.6 % (42.0-52.0); MEAN CORPUSCULAR HEMOGLOBIN 33.8 pg (28.0-32.0); PLATELET 204 x1000/uL (130-400); RED BLOOD CELL COUNT 4.46 mill/uL (4.7-6.1); RED CELL DISTRIBUTION WIDTH 12.5 % (11.6-14.6)
[2018-09-25 10:47] LABS: PARTIAL THROMBOPLASTIN TIME 27.6 sec (23.4-31.0); PROTHROMBIN TIME 10.5 sec (9.6-11.0)
[2018-09-25] MEDS ORDERED: IODIXANOL 320MG/ML 100 ML BOTTLE IV ONE (10:54)
[2018-09-25] MEDS ORDERED: LIDOCAINE HCL 1% 20ML VIAL (Pyxis) INJ ONE (10:54)
[2018-09-25] MEDS ORDERED: ASPIRIN/SOD BICARB/CITRIC ACID 324MG TAB EFF ONE (11:02)
[2018-09-25] MEDS ORDERED: FENTANYL CITRATE/PF 50MCG/ML 2ML VIAL ONE (11:03)
[2018-09-25] MEDS ORDERED: MIDAZOLAM HCL 2 MG/2 ML VIAL ONE ×2 (11:03→12:04)
[2018-09-25] MEDS ORDERED: IOHEXOL-300 100 ML BOTTLE ONE (11:53)
[2018-09-25] MEDS ORDERED: CLOPIDOGREL 75MG TABLET ONE (12:22)
[2018-09-25] MEDS ORDERED: ATROPINE SULFATE 1MG/10ML SYR IV PRN (12:45)
[2018-09-25] MEDS ORDERED: ONDANSETRON HCL 4MG/2ML INJ IV PRN (12:45)
[2018-09-25] MEDS ORDERED: ACETAMINOPHEN 325MG TABLET PO PRN (12:45)
[2018-09-25] MEDS ORDERED: CLOPIDOGREL 75MG TABLET PO SCH (12:45)
[2018-09-25] MEDS ORDERED: MORPHINE SULFATE 4 MG/ML CPJ (NOT FOR IM USE) IV PRN (12:45)
[2018-09-25] MEDS ORDERED: DEXTROSE 50% WATER 50ML SYRINGE IV PRN (13:15)
[2018-09-25] MEDS ORDERED: ADENOSINE 12MCG/ML 10ML VIAL (CATH LAB) IV ONE (13:29)
[2018-09-25] MEDS ORDERED: NITROGLYCERIN 50MCG/ML 10ML VIAL (CATH LAB) IV ONE (13:29)
[2018-09-25] MEDS ORDERED: HEPARIN SODIUM 1,000 UNIT/1ML VIAL IV ONE (13:29)
[2018-09-25] MEDS ORDERED: NICARDIPINE 100MCG/ML 10ML VIAL (CATH LAB) IV ONE (13:29)
[2018-09-25] MEDS ORDERED: SODIUM CHLORIDE 0.45% 750 ML IV SCH (13:30)
[2018-09-25] MEDS: BLOOD SUGAR DIAGNOSTIC STRIP TEST SCH ×2 (16:50→20:16)
[2018-09-25] MEDS ORDERED: MONTELUKAST SODIUM 10MG TABLET PO SCH (17:00)
[2018-09-25] MEDS: INSULIN LISPRO 100 UNITS/ML SUBCUT SCH ×2 (17:18→20:31)
[2018-09-25] MEDS: CARVEDILOL 6.25 MG TABLET PO SCH (20:15)
[2018-09-26] VITALS (8 sets, daily range): BP systolic 91–112; BP diastolic 51–70
[2018-09-26] MEDS: BLOOD SUGAR DIAGNOSTIC STRIP TEST SCH (06:14)
[2018-09-26] MEDS: INSULIN LISPRO 100 UNITS/ML SUBCUT SCH (06:19)
[2018-09-26 06:27] LABS: EOSINOPHILS % 7.8 % (0.0-5.0); HEMATOCRIT. 42.9 % (42.0-52.0); HEMOGLOBIN. 14.8 g/dL (14.0-18.0); MEAN CORPUSCULAR HEMOGLOBIN 34.2 pg (28.0-32.0); MEAN PLATELET VOLUME 7.7 fl (7.4-10.4); MONOCYTES % 11.3 % (2.0-8.0); NEUTROPHILS % 42.9 % (40.0-76.0); PLATELET 187 x1000/uL (130-400); RED BLOOD CELL COUNT 4.33 mill/uL (4.7-6.1); RED CELL DISTRIBUTION WIDTH 12.2 % (11.6-14.6)
[2018-09-26] MEDS ORDERED: LEVOTHYROXINE SODIUM 50MCG TABLET PO SCH (06:50)
[2018-09-26] MEDS: CARVEDILOL 6.25 MG TABLET PO SCH (08:03)
[2018-09-26] MEDS ORDERED: CLOPIDOGREL 75MG TABLET PO SCH (09:00)
[2018-09-26] MEDS ORDERED: SPIRONOLACTONE 25MG TABLET PO SCH (09:00)
[2018-09-26] MEDS ORDERED: ASPIRIN 325MG TABLET PO SCH (09:00)
[2018-09-26] MEDS ORDERED: FUROSEMIDE 20MG TABLET PO SCH (09:00)
== END 2018-09-26 11:40 | disposition home or self-care (01) | DRG 175 ==
LOC: CCL 07:14 → 3WST 07:15
PROVIDERS: ADMIT Specialist; ATTEND Specialist
PROC: 4A023N7 Measurement of Cardiac Sampling and Pressure, Left Heart, Percutaneous Approach (ICD-10-PCS; principal; 2018-09-25)
PROC: 027034Z Dilation of Coronary Artery, One Artery with Drug-eluting Intraluminal Device, Percutaneous Approach (ICD-10-PCS; 2018-09-25)
PROC: B2111ZZ Fluoroscopy of Multiple Coronary Arteries using Low Osmolar Contrast (ICD-10-PCS; 2018-09-25)
PROC: B2131ZZ Fluoroscopy of Multiple Coronary Artery Bypass Grafts using Low Osmolar Contrast (ICD-10-PCS; 2018-09-25)
DX: T82.855A Stenosis of coronary artery stent, initial encounter (principal); D75.1 Secondary polycythemia; I25.82 Chronic total occlusion of coronary artery; I25.10 Atherosclerotic heart disease of native coronary artery without angina pectoris; E03.9 Hypothyroidism, unspecified; E06.9 Thyroiditis, unspecified; E78.00 Pure hypercholesterolemia, unspecified; N18.9 Chronic kidney disease, unspecified; E78.5 Hyperlipidemia, unspecified; J45.909 Unspecified asthma, uncomplicated; I12.9 Hypertensive chronic kidney disease with stage 1 through stage 4 chronic kidney disease, or unspecified chronic kidney disease; G47.33 Obstructive sleep apnea (adult) (pediatric); F41.9 Anxiety disorder, unspecified; K21.9 Gastro-esophageal reflux disease without esophagitis; F32.9 Major depressive disorder, single episode, unspecified; I25.5 Ischemic cardiomyopathy; I65.29 Occlusion and stenosis of unspecified carotid artery; Y83.1 Surgical operation with implant of artificial internal device as the cause of abnormal reaction of the patient, or of later complication, without mention of misadventure at the time of the procedure; Z95.1 Presence of aortocoronary bypass graft; Z79.02 Long term (current) use of antithrombotics/antiplatelets; Z79.82 Long term (current) use of aspirin; Z79.899 Other long term (current) drug therapy; Y92.89 Other specified places as the place of occurrence of the external cause
CPT/HCPCS: 36415; 80048; 82962; 83036; 85027; 85347; 92937; 93005; 93459; C1725; C1769; C1874; C1887; J0153; J1644; J2250; J3010; J3490; Q9967

== ENCOUNTER → 2020-04-20 | Outpatient (CLI) | payer MEDICARE, MEDICAID ==
[~2020-04-20] MED LIST changes: -CLOP75TA16 PO; +CLOP75TA4 PO; +EZET10TA13 PO; +ICOS1CAP MT; +INDO-13 PO; -INDO25CA18 PO; +INSU100I24 SQ; +LEVO50TA MT; -LORA10TA7 PO; -LOSA25TA3 PO; -MONT10TA21 PO; -RANO10003 PO; +SERT50TA12 MT; +SIMV-46 PO; -SIMV40TA5 PO; +SPIR25TA6 MT; -ZET10 PO
== END | disposition home or self-care (01) ==
LOC: LAB 09:24
PROVIDERS: ATTEND Specialist
DX: Z01.812 Encounter for preprocedural laboratory examination (principal); R05 Cough; Z20.828 Contact with and (suspected) exposure to other viral communicable diseases
CPT/HCPCS: 87426

== ENCOUNTER → 2020-09-14 | Outpatient (CLI) | payer MEDICARE, MEDICAID ==
[~2020-09-14] MED LIST changes: +ASPI-1497 MT; -ASPI-986 PO; +CLOP-31 PO; -CLOP75TA4 PO; -ISOS30TA6 PO; +ISOS30TA91 PO; +SERT-422 MT; -SERT50TA12 MT
== END | disposition home or self-care (01) ==
LOC: LAB 09:44
PROVIDERS: ATTEND Specialist
DX: Z01.812 Encounter for preprocedural laboratory examination (principal); R05 Cough; Z20.822 Contact with and (suspected) exposure to COVID-19
CPT/HCPCS: 87426

== ENCOUNTER 2020-09-22 13:18 | Inpatient (IN) | payer MEDICARE, MEDICAID ==
[~2020-09-22] VITALS: Ht 162.6 cm; Wt 69.9 kg
[2020-09-22] MEDS ORDERED: AMIODARONE HCL 200 MG TABLET PO SCH (14:00)
[2020-09-22 14:36] LABS: BASOPHILS % 1.5 % (0.0-2.0); EOSINOPHILS % 3.9 % (0.0-5.0); HEMATOCRIT. 39.2 % (42.0-52.0); HEMOGLOBIN. 13.8 g/dL (14.0-18.0); LYMPHOCYTES % 29.8 % (20.0-50.0); MEAN CORPUSCULAR HEMOGLOBIN 35.2 pg (28.0-32.0); MEAN PLATELET VOLUME 7.9 fl (7.4-10.4); MONOCYTES % 10.9 % (2.0-8.0); NEUTROPHILS % 53.9 % (40.0-76.0); PLATELET 236 x1000/uL (130-400); RED BLOOD CELL COUNT 3.91 mill/uL (4.7-6.1); RED CELL DISTRIBUTION WIDTH 12.5 % (11.6-14.6)
[2020-09-22 14:43] LABS: CHLORIDE 103 mEq/L (98-107)
[2020-09-22] MEDS: CLOPIDOGREL 75MG TABLET PO SCH (15:04)
[2020-09-22] MEDS: ASPIRIN 81MG EC TABLET PO SCH (15:04)
[2020-09-22] MEDS ORDERED: ACETAMINOPHEN 325MG TABLET PO PRN (16:15)
[2020-09-22] MEDS ORDERED: ONDANSETRON HCL 4MG/2ML INJ IV PRN (16:15)
[2020-09-22 16:40] LABS: CREATINE KINASE 67 IU/L (39-308)
[2020-09-22 18:37] VITALS: BP 96/58
[2020-09-22 18:42] VITALS: BP 96/58
[2020-09-22 19:07] LABS: CLARITY URINE CLEAR (CLEAR); COLOR URINE YELLOW (YELLOW); KETONES URINE NEGATIVE (NEGATIVE); LEUKOCYTE ESTERASE URINE NEGATIVE (NEGATIVE); NITRITE URINE NEGATIVE (NEGATIVE); OCCULT BLOOD URINE NEGATIVE (NEGATIVE); PH URINE 5.5 (4.5-8.0); PROTEIN URINE NEGATIVE (NEGATIVE); UROBILINOGEN URINE 0.2 E.U./dL (0.2-1.0)
[2020-09-22 20:00] VITALS: BP 95/49
[2020-09-23] VITALS: BP 91/58
[2020-09-23 04:00] VITALS: BP 88/53
[2020-09-23 07:02] LABS: BASOPHILS % 1.4 % (0.0-2.0); EOSINOPHILS % 5.2 % (0.0-5.0); HEMATOCRIT. 38.4 % (42.0-52.0); HEMOGLOBIN. 13.5 g/dL (14.0-18.0); LYMPHOCYTES % 41.2 % (20.0-50.0); MEAN CORPUSCULAR HEMOGLOBIN 35.3 pg (28.0-32.0); MEAN CORPUSCULAR VOLUME 100.5 fL (80.0-94.0); MEAN PLATELET VOLUME 8.1 fl (7.4-10.4); MONOCYTES % 13.9 % (2.0-8.0); NEUTROPHILS % 38.3 % (40.0-76.0); PLATELET 224 x1000/uL (130-400); RED BLOOD CELL COUNT 3.82 mill/uL (4.7-6.1); RED CELL DISTRIBUTION WIDTH 12.2 % (11.6-14.6)
[2020-09-23 07:54] VITALS: BP 97/52
[2020-09-23] MEDS: ASPIRIN 81MG EC TABLET PO SCH (08:14)
[2020-09-23] MEDS: CLOPIDOGREL 75MG TABLET PO SCH (08:14)
[2020-09-23 11:47] VITALS: BP 88/58
[2020-09-23 12:14] LABS: T4 FREE 1.01 ng/dL (0.76-1.46)
[2020-09-23] MEDS: SODIUM CHLORIDE 0.9% 1,000 ML IV SCH (12:29)
[2020-09-23] MEDS: AMIODARONE HCL 200 MG TABLET PO SCH (15:34)
[2020-09-23 15:53] VITALS: BP 91/57
[2020-09-23 20:31] VITALS: BP 95/62
[2020-09-23] MEDS ORDERED: ATORVASTATIN CALCIUM 40MG TABLET PO SCH (21:00)
[2020-09-24 00:04] VITALS: BP_SYST 110; BP_SYST 117; BP_DIAS 60; BP_DIAS 63
[2020-09-24 04:07] VITALS: BP 116/70
[2020-09-24] MEDS ORDERED: LEVOTHYROXINE SODIUM 50MCG TABLET PO SCH (06:45)
[2020-09-24 06:46] LABS: BASOPHILS % 1.1 % (0.0-2.0); EOSINOPHILS % 5.1 % (0.0-5.0); HEMATOCRIT. 39.1 % (42.0-52.0); HEMOGLOBIN. 13.3 g/dL (14.0-18.0); LYMPHOCYTES % 37.8 % (20.0-50.0); MEAN CORPUSCULAR HEMOGLOBIN 34.3 pg (28.0-32.0); MEAN CORPUSCULAR VOLUME 100.5 fL (80.0-94.0); MEAN PLATELET VOLUME 8.1 fl (7.4-10.4); MONOCYTES % 11.3 % (2.0-8.0); NEUTROPHILS % 44.7 % (40.0-76.0); PLATELET 229 x1000/uL (130-400); RED BLOOD CELL COUNT 3.89 mill/uL (4.7-6.1); RED CELL DISTRIBUTION WIDTH 12.4 % (11.6-14.6)
[2020-09-24 08:00] VITALS: BP 112/60
[2020-09-24] MEDS: CLOPIDOGREL 75MG TABLET PO SCH (08:37)
[2020-09-24] MEDS: ASPIRIN 81MG EC TABLET PO SCH (08:37)
[2020-09-24] MEDS: SODIUM CHLORIDE 0.9% 1,000 ML IV SCH (08:38)
[2020-09-24 12:00] VITALS: BP 110/65
[2020-09-24 12:51] VITALS: BP 110/65
[2020-09-24] MEDS: AMIODARONE HCL 200 MG TABLET PO SCH (14:59)
== END 2020-09-24 15:30 | disposition home or self-care (01) | DRG 73 ==
LOC: ER 13:18 → ENRESERV 13:46 → 5WST 17:51
PROVIDERS: ADMIT Internal Medicine; ATTEND Internal Medicine
DX: G90.8 Other disorders of autonomic nervous system (principal); N17.0 Acute kidney failure with tubular necrosis; I13.0 Hypertensive heart and chronic kidney disease with heart failure and stage 1 through stage 4 chronic kidney disease, or unspecified chronic kidney disease; E87.1 Hypo-osmolality and hyponatremia; I50.22 Chronic systolic (congestive) heart failure; I25.10 Atherosclerotic heart disease of native coronary artery without angina pectoris; E11.22 Type 2 diabetes mellitus with diabetic chronic kidney disease; N18.9 Chronic kidney disease, unspecified; E03.9 Hypothyroidism, unspecified; E78.00 Pure hypercholesterolemia, unspecified; E78.5 Hyperlipidemia, unspecified; F17.210 Nicotine dependence, cigarettes, uncomplicated; I44.1 Atrioventricular block, second degree; I95.9 Hypotension, unspecified; I25.5 Ischemic cardiomyopathy; Z95.1 Presence of aortocoronary bypass graft; Z95.5 Presence of coronary angioplasty implant and graft; Z79.02 Long term (current) use of antithrombotics/antiplatelets; Z79.82 Long term (current) use of aspirin; Z79.84 Long term (current) use of oral hypoglycemic drugs; I25.2 Old myocardial infarction
CPT/HCPCS: 36415; 71045; 72141; 76770; 80048; 80053; 81003; 82550; 83605; 83880; 84439; 84443; 84481; 84484; 85025; 93005; 99285; J7030

== ENCOUNTER 2021-12-15 14:23 | Inpatient (IN) | payer MEDICARE, MEDICAID ==
[~2021-12-15] VITALS: Ht 165.1 cm; Wt 69.9 kg
[~2021-12-15 14:23] MED LIST changes: -CARV6.2548 PO; -SACU1TAB PO
[2021-12-15] MEDS ORDERED: ASPIRIN 81MG TABLET PO ONE (16:15)
[2021-12-15 16:35] LABS: BASOPHILS % 1.1 % (0.0-2.0); EOSINOPHILS % 5.3 % (0.0-5.0); HEMATOCRIT. 45.4 % (42.0-52.0); HEMOGLOBIN. 15.5 g/dL (14.0-18.0); LYMPHOCYTES % 41.5 % (20.0-50.0); MEAN CORPUSCULAR HEMOGLOBIN 34.3 pg (28.0-32.0); MEAN CORPUSCULAR VOLUME 100.7 fL (80.0-94.0); MEAN PLATELET VOLUME 7.6 fl (7.4-10.4); MONOCYTES % 11.2 % (2.0-8.0); NEUTROPHILS % 40.9 % (40.0-76.0); PLATELET 201 x1000/uL (130-400); RED BLOOD CELL COUNT 4.51 mill/uL (4.7-6.1); RED CELL DISTRIBUTION WIDTH 12.3 % (11.6-14.6)
[2021-12-15 16:47] LABS: CHLORIDE 111 mEq/L (98-107)
[2021-12-15] MEDS: NITROGLYCERIN 0.4MG TABLET SL SL PRN ×2 (16:53→17:09)
[2021-12-16] VITALS (25 sets, daily range): BP systolic 77–141; BP diastolic 49–95
[2021-12-16] MEDS ORDERED: COR6 MT (05:18)
[2021-12-16] MEDS ORDERED: SACU1TAB MT (05:18)
[2021-12-16] MEDS ORDERED: DAPA5TAB MT (05:18)
[2021-12-16] MEDS ORDERED: NITROGLYCERIN 50MCG/ML 10ML VIAL (CATH LAB) IV ONE (07:34)
[2021-12-16] MEDS ORDERED: NICARDIPINE 100MCG/ML 10ML VIAL (CATH LAB) IV ONE (07:34)
[2021-12-16] MEDS ORDERED: IPRATROPIUM/ALBUTEROL 0.5-3(2.5)MG/3ML NEB HHN PRN (07:45)
[2021-12-16] MEDS ORDERED: GUAIFENESIN 200MG/10ML SUGAR FREE UDC PO PRN (07:45)
[2021-12-16] MEDS ORDERED: CLONIDINE 0.1MG TABLET PO PRN (07:45)
[2021-12-16] MEDS ORDERED: DOCUSATE SODIUM 100MG CAPSULE PO PRN (07:45)
[2021-12-16] MEDS ORDERED: MAGNESIUM/ALUMINUM HYDROXIDE/SIMETHICONE 30ML UDC PO PRN (07:45)
[2021-12-16] MEDS ORDERED: HYDRALAZINE 20MG/ML VIAL IV PRN (07:45)
[2021-12-16] MEDS ORDERED: MORPHINE SULFATE 2 MG/ML CPJ (NOT FOR IM USE) IV PRN ×2 (07:45→12:15)
[2021-12-16] MEDS ORDERED: DIPHENHYDRAMINE 50MG/ML VIAL IV PRN (07:45)
[2021-12-16] MEDS ORDERED: ACETAMINOPHEN 325MG TABLET PO PRN ×2 (07:45→12:15)
[2021-12-16] MEDS ORDERED: ONDANSETRON HCL 4MG/2ML INJ IV PRN ×2 (07:45→12:15)
[2021-12-16] MEDS ORDERED: NALOXONE HCL 0.4MG/ML VIAL IV PRN (08:45)
[2021-12-16] MEDS: ENOXAPARIN 30MG/0.3ML SYR SUBCUT SCH (09:00)
[2021-12-16] MEDS ORDERED: SODIUM CHLORIDE 0.45% 1,000 ML IV NR (09:00)
[2021-12-16] MEDS ORDERED: ASPIRIN/SOD BICARB/CITRIC ACID 324MG TAB EFF ONE (10:18)
[2021-12-16] MEDS ORDERED: MIDAZOLAM HCL 2 MG/2 ML VIAL ONE (10:18)
[2021-12-16] MEDS ORDERED: HEPARIN 1000 UNITS/ML 10ML ONE ×2 (10:18→11:24)
[2021-12-16] MEDS ORDERED: FENTANYL CITRATE/PF 50MCG/ML 2ML VIAL ONE (10:18)
[2021-12-16] MEDS ORDERED: IODIXANOL 320MG/ML 100 ML BOTTLE IV ONE (10:18)
[2021-12-16] MEDS ORDERED: LIDOCAINE HCL 1% 10 MG/ML 10ML VIAL ONE ×2 (10:19→11:10)
[2021-12-16] MEDS ORDERED: CLOPIDOGREL 75MG TABLET ONE (11:37)
[2021-12-16] MEDS ORDERED: ATROPINE SULFATE 1MG/10ML SYR ONE (11:44)
[2021-12-16] MEDS ORDERED: ATROPINE SULFATE 1MG/10ML SYR IV PRN (12:15)
[2021-12-16] MEDS ORDERED: SODIUM CHLORIDE 0.45% 1,000 ML IV ONE (12:15)
[2021-12-16] MEDS ORDERED: CLOPIDOGREL 75MG TABLET PO SCH (12:15)
[2021-12-16] MEDS: SODIUM CHLORIDE 0.9% INJ 3ML FLUSH IVF SCH ×2 (14:00→22:00)
[2021-12-16 17:14] LABS: CLARITY URINE CLEAR (CLEAR); COLOR URINE YELLOW (YELLOW); KETONES URINE NEGATIVE (NEGATIVE); LEUKOCYTE ESTERASE URINE NEGATIVE (NEGATIVE); NITRITE URINE NEGATIVE (NEGATIVE); OCCULT BLOOD URINE 1+ (NEGATIVE); PH URINE 5.5 (4.5-8.0); PROTEIN URINE NEGATIVE (NEGATIVE); SPECIFIC GRAVITY URINE 1.025 (1.005-1.030); UROBILINOGEN URINE 0.2 E.U./dL (0.2-1.0)
[2021-12-16 17:37] LABS: *AMPHETAMINES SCREEN URINE NEGATIVE (NEGATIVE); *BARBITURATES SCREEN URINE NEGATIVE (NEGATIVE); *BENZODIAZEPINES SCREEN URINE PRESUMTIVE POSITIVE (NEGATIVE); *COCAINE SCREEN URINE NEGATIVE (NEGATIVE); CANNABINOID URINE SCREEN NEGATIVE (NEGATIVE); METHADONE URINE SCREEN NEGATIVE (NEGATIVE); OPIATES URINE SCREEN NEGATIVE (NEGATIVE); PHENCYCLIDINE URINE SCREEN NEGATIVE (NEGATIVE)
[2021-12-16] MEDS: HYDROCODONE/ACETAMINOPHEN 5/325MG TABLET PO PRN (20:11)
[2021-12-17] VITALS (11 sets, daily range): BP systolic 90–140; BP diastolic 49–88
[2021-12-17] MEDS: SODIUM CHLORIDE 0.9% INJ 3ML FLUSH IVF SCH ×3 (06:00→22:00)
[2021-12-17 06:24] LABS: CHLORIDE 105 mEq/L (98-107)
[2021-12-17 06:29] LABS: BASOPHILS % 0.9 % (0.0-2.0); EOSINOPHILS % 5.6 % (0.0-5.0); HEMATOCRIT. 43.9 % (42.0-52.0); HEMOGLOBIN. 15.2 g/dL (14.0-18.0); LYMPHOCYTES % 33.5 % (20.0-50.0); MEAN CORPUSCULAR HEMOGLOBIN 34.5 pg (28.0-32.0); MEAN CORPUSCULAR VOLUME 99.7 fL (80.0-94.0); MEAN PLATELET VOLUME 7.8 fl (7.4-10.4); MONOCYTES % 12.1 % (2.0-8.0); NEUTROPHILS % 47.9 % (40.0-76.0); PLATELET 159 x1000/uL (130-400); RED CELL DISTRIBUTION WIDTH 12.1 % (11.6-14.6)
[2021-12-17] MEDS: CLOPIDOGREL 75MG TABLET PO SCH (09:07)
[2021-12-17] MEDS: ASPIRIN 81MG EC TABLET PO SCH (09:08)
[2021-12-17] MEDS: ENOXAPARIN 30MG/0.3ML SYR SUBCUT SCH (09:08)
[2021-12-17] MEDS: HYDROCODONE/ACETAMINOPHEN 5/325MG TABLET PO PRN (13:07)
[2021-12-18] VITALS (11 sets, daily range): BP systolic 92–112; BP diastolic 50–76
[2021-12-18 05:32] LABS: HEMATOCRIT. 43.9 % (42.0-52.0); HEMOGLOBIN. 15.4 g/dL (14.0-18.0); MEAN CORPUSCULAR HEMOGLOBIN 34.6 pg (28.0-32.0); MEAN CORPUSCULAR VOLUME 98.1 fL (80.0-94.0); MEAN PLATELET VOLUME 8.1 fl (7.4-10.4); PLATELET 168 x1000/uL (130-400); RED BLOOD CELL COUNT 4.47 mill/uL (4.7-6.1)
[2021-12-18] MEDS: SODIUM CHLORIDE 0.9% INJ 3ML FLUSH IVF SCH ×3 (06:00→21:34)
[2021-12-18] MEDS: CLOPIDOGREL 75MG TABLET PO SCH (09:42)
[2021-12-18] MEDS: ASPIRIN 81MG EC TABLET PO SCH (09:42)
[2021-12-18] MEDS: ENOXAPARIN 30MG/0.3ML SYR SUBCUT SCH (09:49)
[2021-12-18] MEDS ORDERED: LACTULOSE 20G/30ML UDC PO SCH (12:00)
[2021-12-18 12:40] LABS: PLATELET ESTIMATE NORMAL
[2021-12-18] MEDS ORDERED: SODIUM CHLORIDE 0.45% 500 ML IV ONE (15:00)
[2021-12-18] MEDS ORDERED: DIATR MEGLU/DIATRIZOATE SOLN 30ML PO SCH (15:00)
[2021-12-19] VITALS (13 sets, daily range): BP systolic 73–104; BP diastolic 24–72
[2021-12-19] MEDS: SODIUM CHLORIDE 0.9% INJ 3ML FLUSH IVF SCH ×3 (06:00→14:32)
[2021-12-19] MEDS ORDERED: ENOXAPARIN 40MG/0.4ML SYR SUBCUT SCH (09:00)
[2021-12-19] MEDS: ASPIRIN 81MG EC TABLET PO SCH (09:17)
[2021-12-19] MEDS: CLOPIDOGREL 75MG TABLET PO SCH (09:17)
== END 2021-12-19 16:00 | disposition home or self-care (01) | DRG 246 ==
LOC: ER 14:23 → 7WST 12-16 00:15 → ENRESERV 12-16 02:27 → 5EST 12-16 11:55
PROVIDERS: ADMIT Internal Medicine; ATTEND Internal Medicine
PROC: 027135Z Dilation of Coronary Artery, Two Arteries with Two Drug-eluting Intraluminal Devices, Percutaneous Approach (ICD-10-PCS; principal; 2021-12-16)
PROC: 4A023N7 Measurement of Cardiac Sampling and Pressure, Left Heart, Percutaneous Approach (ICD-10-PCS; 2021-12-16)
PROC: B2111ZZ Fluoroscopy of Multiple Coronary Arteries using Low Osmolar Contrast (ICD-10-PCS; 2021-12-16)
PROC: B2131ZZ Fluoroscopy of Multiple Coronary Artery Bypass Grafts using Low Osmolar Contrast (ICD-10-PCS; 2021-12-16)
DX: I25.110 Atherosclerotic heart disease of native coronary artery with unstable angina pectoris (principal); J96.00 Acute respiratory failure, unspecified whether with hypoxia or hypercapnia; I13.0 Hypertensive heart and chronic kidney disease with heart failure and stage 1 through stage 4 chronic kidney disease, or unspecified chronic kidney disease; N17.9 Acute kidney failure, unspecified; I50.9 Heart failure, unspecified; E11.22 Type 2 diabetes mellitus with diabetic chronic kidney disease; N18.9 Chronic kidney disease, unspecified; E03.9 Hypothyroidism, unspecified; E78.00 Pure hypercholesterolemia, unspecified; I25.5 Ischemic cardiomyopathy; D18.03 Hemangioma of intra-abdominal structures; D64.9 Anemia, unspecified; K59.00 Constipation, unspecified; I95.9 Hypotension, unspecified; R10.9 Unspecified abdominal pain; Z20.822 Contact with and (suspected) exposure to COVID-19; R74.01 Elevation of levels of liver transaminase levels; F17.210 Nicotine dependence, cigarettes, uncomplicated; Z90.49 Acquired absence of other specified parts of digestive tract; Z79.899 Other long term (current) drug therapy; Z79.02 Long term (current) use of antithrombotics/antiplatelets; I25.2 Old myocardial infarction; Z95.1 Presence of aortocoronary bypass graft; Z79.82 Long term (current) use of aspirin; Z79.4 Long term (current) use of insulin
CPT/HCPCS: 36415; 71045; 74176; 76700; 80048; 80053; 80305; 81003; 83036; 83880; 84443; 84484; 85025; 85347; 87426; 92937; 92938; 93005; 93459; 99285; C1760; C1769; C1874; C1887; C1893; J0461; J1644; J1650; J2250; J2270; J3010; J3490; Q9963; Q9967

== ENCOUNTER 2022-08-15 12:57 | Inpatient (IN) | payer MEDICARE, MEDICAID ==
[~2022-08-15] VITALS: Ht 170.2 cm; Wt 75.1 kg
[~2022-08-15 12:57] MED LIST changes: +COR6 MT; +DAPA5TAB MT; +DICL100G31 TP; +NITR0.4T SL; +PREG50CA PO; +SACU1TAB MT; +TAMS-11 PO
[2022-08-15 15:39] LABS: BASOPHILS % 0.6 % (0.0-2.0); CHLORIDE 106 mEq/L (98-107); EOSINOPHILS % 2.1 % (0.0-5.0); LYMPHOCYTES % 20.1 % (20.0-50.0); MEAN CORPUSCULAR HEMOGLOBIN 34.2 pg (28.0-32.0); MEAN CORPUSCULAR VOLUME 100.6 fL (80.0-94.0); MEAN PLATELET VOLUME 7.9 fl (7.4-10.4); MONOCYTES % 10.9 % (2.0-8.0); NEUTROPHILS % 66.3 % (40.0-76.0); PLATELET 199 x1000/uL (130-400); RED BLOOD CELL COUNT 4.37 mill/uL (4.7-6.1); RED CELL DISTRIBUTION WIDTH 12.2 % (11.6-14.6)
[2022-08-15 15:44] LABS: PROTHROMBIN TIME 10.9 sec (9.6-11.0)
[2022-08-15] MEDS ORDERED: NITROGLYCERIN 0.4MG TABLET SL SL PRN (15:45)
[2022-08-15] MEDS ORDERED: ASPIRIN 81MG TABLET PO ONE (15:45)
[2022-08-15] MEDS ORDERED: ASPIRIN 81MG TABLET PO NR (18:15)
[2022-08-15] MEDS ORDERED: MORPHINE SULFATE 4 MG/ML CPJ (NOT FOR IM USE) IV ONE (18:45)
[2022-08-15] MEDS ORDERED: MORPHINE SULFATE 4 MG/ML CPJ (NOT FOR IM USE) IV NR (20:30)
[2022-08-15 23:35] VITALS: BP 118/68
[2022-08-16] MEDS ORDERED: CLONIDINE 0.1MG TABLET PO PRN (00:30)
[2022-08-16] MEDS ORDERED: DOCUSATE SODIUM 100MG CAPSULE PO PRN (00:30)
[2022-08-16] MEDS ORDERED: ACETAMINOPHEN 325MG TABLET PO PRN ×2 (00:30)
[2022-08-16] MEDS ORDERED: IPRATROPIUM/ALBUTEROL 0.5-3(2.5)MG/3ML NEB HHN PRN (00:30)
[2022-08-16] MEDS ORDERED: LORAZEPAM 0.5MG TABLET PO PRN (00:30)
[2022-08-16] MEDS ORDERED: ONDANSETRON HCL 4MG/2ML INJ IV PRN (00:30)
[2022-08-16 00:45] VITALS: BP 118/68
[2022-08-16] MEDS ORDERED: IPRATROPIUM BROMIDE (0.02%) 0.5MG/2.5ML NEB HHN PRN (00:45)
[2022-08-16] MEDS ORDERED: ALBUTEROL (0.083%) 2.5MG/3ML NEB HHN PRN (00:45)
[2022-08-16] MEDS ORDERED: SACU1TAB PO (01:21)
[2022-08-16] MEDS: HYDROCODONE/ACETAMINOPHEN 5/325MG TABLET PO PRN ×2 (02:17→12:32)
[2022-08-16 04:00] VITALS: BP 100/58
[2022-08-16 08:00] VITALS: BP 104/60
[2022-08-16] MEDS ORDERED: DEXTROSE 50% WATER 50ML SYRINGE IV PRN (11:30)
[2022-08-16 12:00] VITALS: BP 125/77
[2022-08-16] MEDS: INSULIN LISPRO 100 UNITS/ML SUBCUT SCH ×3 (12:10→21:00)
[2022-08-16] MEDS: ENOXAPARIN 40MG/0.4ML SYR SUBCUT SCH (12:31)
[2022-08-16] MEDS: ASPIRIN 81MG EC TABLET PO SCH (12:31)
[2022-08-16] MEDS: LEVOTHYROXINE SODIUM 50MCG TABLET PO SCH (12:32)
[2022-08-16] MEDS: CLOPIDOGREL 75MG TABLET PO SCH (12:32)
[2022-08-16] MEDS: BLOOD SUGAR DIAGNOSTIC STRIP TEST SCH ×3 (12:33→21:00)
[2022-08-16] MEDS: LIDOCAINE 5% PATCH TOP SCH (12:33)
[2022-08-16 13:28] LABS: CREATINE KINASE 75 IU/L (39-308)
[2022-08-16 14:37] LABS: *AMPHETAMINES SCREEN URINE NEGATIVE (NEGATIVE); *BARBITURATES SCREEN URINE NEGATIVE (NEGATIVE); *BENZODIAZEPINES SCREEN URINE NEGATIVE (NEGATIVE); *COCAINE SCREEN URINE NEGATIVE (NEGATIVE); CANNABINOID URINE SCREEN NEGATIVE (NEGATIVE); METHADONE URINE SCREEN NEGATIVE (NEGATIVE); OPIATES URINE SCREEN PRESUMTIVE POSITIVE (NEGATIVE); PHENCYCLIDINE URINE SCREEN NEGATIVE (NEGATIVE)
[2022-08-16 16:00] VITALS: BP 118/91
[2022-08-16] MEDS: INDOMETHACIN 25MG CAPSULE PO SCH (18:40)
[2022-08-16 20:00] VITALS: BP 90/64
[2022-08-16] MEDS ORDERED: ATORVASTATIN CALCIUM 20MG TABLET PO SCH (21:00)
[2022-08-17] VITALS: BP 119/59
[2022-08-17 04:00] VITALS: BP 109/55
[2022-08-17] MEDS: BLOOD SUGAR DIAGNOSTIC STRIP TEST SCH ×2 (05:50→11:40)
[2022-08-17] MEDS: LEVOTHYROXINE SODIUM 50MCG TABLET PO SCH (05:50)
[2022-08-17] MEDS: INSULIN LISPRO 100 UNITS/ML SUBCUT SCH ×2 (06:57→12:10)
[2022-08-17 07:29] LABS: BASOPHILS % 0.9 % (0.0-2.0); EOSINOPHILS % 5.7 % (0.0-5.0); HEMATOCRIT. 40.5 % (42.0-52.0); HEMOGLOBIN. 13.9 g/dL (14.0-18.0); LYMPHOCYTES % 39.4 % (20.0-50.0); MEAN CORPUSCULAR HEMOGLOBIN 33.8 pg (28.0-32.0); MEAN CORPUSCULAR VOLUME 98.7 fL (80.0-94.0); MONOCYTES % 14.4 % (2.0-8.0); NEUTROPHILS % 39.6 % (40.0-76.0); PLATELET 216 x1000/uL (130-400); RED CELL DISTRIBUTION WIDTH 12.1 % (11.6-14.6)
[2022-08-17 08:00] VITALS: BP 93/51
[2022-08-17] MEDS: ASPIRIN 81MG EC TABLET PO SCH (09:00)
[2022-08-17] MEDS ORDERED: TAMSULOSIN HCL 0.4MG SR CAPSULE PO SCH (09:00)
[2022-08-17] MEDS: INDOMETHACIN 25MG CAPSULE PO SCH (09:00)
[2022-08-17] MEDS ORDERED: EZETIMIBE 10MG TABLET PO SCH (09:00)
[2022-08-17] MEDS ORDERED: SERTRALINE HCL 50MG TABLET PO SCH (09:00)
[2022-08-17] MEDS: CLOPIDOGREL 75MG TABLET PO SCH (09:00)
[2022-08-17] MEDS ORDERED: FAMOTIDINE 20MG TABLET PO SCH (09:00)
[2022-08-17] MEDS: ENOXAPARIN 40MG/0.4ML SYR SUBCUT SCH (10:18)
[2022-08-17] MEDS: LIDOCAINE 5% PATCH TOP SCH (10:18)
[2022-08-17 12:00] VITALS: BP 115/65
[2022-08-17] MEDS ORDERED: TRAM50TA3 MT (13:01)
[2022-08-17] MEDS ORDERED: LIDO1ADH71 TD ×2 (13:34)
[2022-08-17 14:41] VITALS: BP 115/65
== END 2022-08-17 15:20 | disposition home health service (06) | DRG 206 ==
LOC: ER 12:57 → 7EST 18:16 → EDBEDREQTM 18:20 → EDBEDREQ 18:20
PROVIDERS: ADMIT Family Medicine Adult Medicine; ATTEND Family Medicine Adult Medicine
DX: M94.0 Chondrocostal junction syndrome [Tietze] (principal); N17.9 Acute kidney failure, unspecified; I13.0 Hypertensive heart and chronic kidney disease with heart failure and stage 1 through stage 4 chronic kidney disease, or unspecified chronic kidney disease; I50.9 Heart failure, unspecified; I25.10 Atherosclerotic heart disease of native coronary artery without angina pectoris; N18.9 Chronic kidney disease, unspecified; E11.22 Type 2 diabetes mellitus with diabetic chronic kidney disease; E11.65 Type 2 diabetes mellitus with hyperglycemia; E03.9 Hypothyroidism, unspecified; Z20.822 Contact with and (suspected) exposure to COVID-19; I25.5 Ischemic cardiomyopathy; N32.0 Bladder-neck obstruction; E78.00 Pure hypercholesterolemia, unspecified; E78.5 Hyperlipidemia, unspecified; F41.1 Generalized anxiety disorder; I25.2 Old myocardial infarction; Z95.1 Presence of aortocoronary bypass graft; Z86.73 Personal history of transient ischemic attack (TIA), and cerebral infarction without residual deficits; Z95.5 Presence of coronary angioplasty implant and graft; Z90.49 Acquired absence of other specified parts of digestive tract; Z79.84 Long term (current) use of oral hypoglycemic drugs; Z79.02 Long term (current) use of antithrombotics/antiplatelets; Z87.891 Personal history of nicotine dependence; Z79.4 Long term (current) use of insulin
CPT/HCPCS: 36415; 71045; 76705; 76770; 78582; 80048; 80053; 80305; 82550; 82962; 83880; 84484; 85025; 85379; 87426; 93005; 93306; 93970; 99285; A9558; C9803; J1650; J2270

== ENCOUNTER → 2025-03-04 | Day surgery (SDC) | payer MEDICARE, MEDICAID ==
[~2025-03-04] VITALS: Ht 170.2 cm; Wt 68.9 kg
[~2025-03-04] MED LIST changes: +ACETAMINOPHEN 325MG TABLET PO PRN; -ASPI-1497 MT; +ASPI-1497 PO; +ATROPINE SULFATE 1MG/10ML SYR IV PRN; -BRIM15DR2 EACHEYE; +CARV6.2548 PO; -CLOP-31 PO; +CLOP75TA33 PO; -COR6 MT; -DAPA5TAB MT; -DICL100G31 TP; +DICY-18 PO; -EZET10TA13 PO; +EZET10TA81 PO; -FAMO40TA70 PO; +FENTANYL CITRATE/PF 50MCG/ML 2ML VIAL ONE; -FURO20TA4 PO; +HEPARIN 1000 UNITS/ML 10ML ONE; -HYDR500C18 PO; -ICOS1CAP MT; +ICOS1CAP PO; -INDO-13 PO; -INSU100I24 SQ; +IODIXANOL 320MG/ML 100 ML BOTTLE IV ONE; -ISOS30TA91 PO; +ISOS60TA76 PO; +LANS30CA55 PO; +LEVO125T8 PO; -LEVO50TA MT; +LIDO700A30 TP; +LIDOCAINE HCL 1% 20ML VIAL ONE; +MIDAZOLAM HCL 2 MG/2 ML VIAL ONE; +MORPHINE SULFATE 2 MG/ML INJ (NOT FOR IM USE) IV PRN; +ONDANSETRON HCL 4MG/2ML INJ IV PRN; -PREG50CA PO; +RANO500T6 PO; -SACU1TAB MT; +SACU1TAB PO; -SERT-422 MT; +SODIUM CHLORIDE 0.45% 500 ML IV ONE; -SPIR25TA6 MT; -TAMS-11 PO; +TAMS-54 PO; +TRAZ-251 PO
== END | disposition home or self-care (01) ==
LOC: CCL 06:59
PROVIDERS: ATTEND Specialist
DX: I25.10 Atherosclerotic heart disease of native coronary artery without angina pectoris (principal); I25.5 Ischemic cardiomyopathy; I13.10 Hypertensive heart and chronic kidney disease without heart failure, with stage 1 through stage 4 chronic kidney disease, or unspecified chronic kidney disease; E11.22 Type 2 diabetes mellitus with diabetic chronic kidney disease; N18.9 Chronic kidney disease, unspecified; I25.82 Chronic total occlusion of coronary artery; E78.5 Hyperlipidemia, unspecified; I34.0 Nonrheumatic mitral (valve) insufficiency; F17.200 Nicotine dependence, unspecified, uncomplicated; Z79.02 Long term (current) use of antithrombotics/antiplatelets; Z79.82 Long term (current) use of aspirin; Z79.84 Long term (current) use of oral hypoglycemic drugs; Z79.890 Hormone replacement therapy; Z79.899 Other long term (current) drug therapy; Z92.3 Personal history of irradiation; Z95.1 Presence of aortocoronary bypass graft; Z95.5 Presence of coronary angioplasty implant and graft; Z98.890 Other specified postprocedural states
CPT/HCPCS: 93459; 82962; C1893; C1725 ×2; C1769 ×3; J3010; Q9967; J1644 ×2; J2003; J2250; C1887; 99152; 99153; A4606; G0500